=== PATIENT | male | born 1970 | race Caucasian/White ===

== ENCOUNTER 2017-11-24 13:20 | Observation (INO) | payer MEDICARE, OTHER ==
[2017-11-23 23:00] VITALS: BP 128/83
[~2017-11-24] VITALS: Ht 175.3 cm; Wt 99.6 kg
[~2017-11-24 13:20] MED LIST: ALBU8HFA PO; AMIT10TA6 PO; ASPI-611 PO; CHOL200041 PO; DULO-31 PO; FENT; LISI-604 PO; MAGN400T39 PO; MORP30TA PO; PANT40TA4 PO; PROC10TA PO; SENN-29 PO; TEST200V10 IM; TIZA4TAB11 PO; [UNRECOGNIZED DRUG - OTHER]
[2017-11-24] MEDS ORDERED: aspirin 81mg tab.chew PO ONE (13:30)
[2017-11-24 13:38] LABS: BASOPHILS % (AUTO) 0.4 % (0-1); EOSINOPHILS # (AUTO) 0.6 X10'3 (0-0.9); EOSINOPHILS % (AUTO) 6.8 % (0-6); HEMATOCRIT 53.2 % (42.0-52.0); LYMPHOCYTES # (AUTO) 1.6 X10'3 (1.1-4.8); MEAN CORPUSCULAR HEMOGLOBIN 31.2 PG (27.0-31.0); MEAN CORPUSCULAR HGB CONC 35.2 % (33.0-36.5); MEAN CORPUSCULAR VOLUME 88.8 FL (78-98); MEAN PLATELET VOLUME 8.7 FL (7.4-10.4); MONOCYTES # (AUTO) 0.6 X10'3 (0-0.9); MONOCYTES % (AUTO) 6.1 % (2-12); NEUTROPHILS # (AUTO) 6.3 X10'3 (1.8-7.7); NEUTROPHILS % (AUTO) 68.7 % (42-75); PLATELET COUNT 267 X10'3 (140-440); RED BLOOD COUNT 5.99 X10'6 (4.70-6.10); RED CELL DISTRIBUTION WIDTH 12.6 % (11.5-14.5); WHITE BLOOD COUNT 9.1 X10'3 (4.5-11.0)
[2017-11-24 13:42] LABS: HEMOGLOBIN 18.7 g/dl (14.0-17.9)
[2017-11-24 13:47] LABS: INR 1.1 INR; PARTIAL THROMBOPLASTIN TIME 30 SECONDS (22-32); PROTHROMBIN TIME 11.2 SECONDS (9.0-12.0)
[2017-11-24 13:53] LABS: ALANINE AMINOTRANSFERASE 34 U/L (12-78); ALBUMIN 4.6 G/DL (3.4-5.0); ALKALINE PHOSPHATASE 86 IU/L (46-116); ANION GAP 10 (8-16); ASPARTATE AMINO TRANSFERASE 20 U/L (10-37); BILIRUBIN,TOTAL 0.6 MG/DL (0.1-1.0); BLOOD UREA NITROGEN 15 MG/DL (7-18); BUN/CREATININE RATIO 13.2 (5.4-32.0); CALCIUM 9.4 MG/DL (8.5-10.1); CHLORIDE 102 MMOL/L (99-107); CREATININE 1.14 MG/DL (0.60-1.10); GLUCOSE 165 MG/DL (70-104); POTASSIUM 4.2 MMOL/L (3.5-5.1); SODIUM 139 MMOL/L (135-145); TOTAL CARBON DIOXIDE 26.6 MMOL/L (24-32); TOTAL PROTEIN 9.2 G/DL (6.4-8.2); eGFR 69 ML/MIN
[2017-11-24] MEDS ORDERED: proCHLORperazine 10mg tablet PO PRN (14:45)
[2017-11-24] MEDS ORDERED: morphine IR (immed. release) 30mg tablet PO PRN (14:45)
[2017-11-24] MEDS ORDERED: sennosides/docusate sodium tablet PO PRN (14:45)
[2017-11-24] MEDS ORDERED: non-formulary drug (albuterol inhaler (Pro-Air Inhaler) 2 PUFFS) PO PRN (14:45)
[2017-11-24] MEDS ORDERED: [UNRECOGNIZED DRUG - OTHER] IM SCH (14:45)
[2017-11-24] MEDS ORDERED: amitriptyline 10mg tablet PO PRN ×3 (14:45→15:27)
[2017-11-24] MEDS ORDERED: TESTOSTERONE CYPIONATE IM SCH (14:45)
[2017-11-24] MEDS ORDERED: tizanidine 4mg tablet PO PRN (14:45)
[2017-11-24] MEDS ORDERED: nitroGLYCERIN 0.4mg SUBLingual tab SL PRN ×2 (14:50)
[2017-11-24] MEDS ORDERED: normal saline 500ml IV soln 500 ML IV SCH (14:50)
[2017-11-24] MEDS ORDERED: morphine 4 MG/ML inj SYRINge IV PRN (14:50)
[2017-11-24] MEDS ORDERED: metoprolol tartrate 1mg/ml inj IV PRN (14:50)
[2017-11-24] MEDS ORDERED: atropine 0.1mg/ml 10ml syringe IV PRN (14:50)
[2017-11-24] MEDS ORDERED: DOBUTamine-DoBUTrex 500mg/D5W 250 ML IV ONE (14:50)
[2017-11-24] MEDS ORDERED: aspirin 325mg tablet PO ONE (14:50)
[2017-11-24] MEDS ORDERED: acetaminophen 325mg tablet PO PRN ×2 (14:50)
[2017-11-24] MEDS ORDERED: albuterol 2.5 MG/3 ML nebule NEB PRN (15:05)
[2017-11-24] MEDS ORDERED: ipratropium/albuterol 3ml nebule NEB PRN (15:10)
[2017-11-24 16:02] LABS: CHOL/HDL RATIO 6.2 (0.00-4.99); CHOLESTEROL 296 MG/DL (0-200); HDL CHOLESTEROL 48 MG/DL (35-60); LDL CHOLESTEROL 207 MG/DL (50-100); TRIGLYCERIDES 210 MG/DL (20-135)
[2017-11-24 20:10] VITALS: BP 148/72
[2017-11-24] MEDS: heparin, porcine 5000 units/ml vial SQ SCH (20:55)
[2017-11-24 23:00] VITALS: BP 128/83
[2017-11-25 02:05] LABS: ALANINE AMINOTRANSFERASE 29 U/L (12-78); ALBUMIN 2.4 G/DL (3.4-5.0); ALBUMIN/GLOBULIN RATIO 0.5 (1.1-1.5); ALKALINE PHOSPHATASE 70 IU/L (46-116); ANION GAP 11 (8-16); ASPARTATE AMINO TRANSFERASE 17 U/L (10-37); BILIRUBIN,TOTAL 0.5 MG/DL (0.1-1.0); BLOOD UREA NITROGEN 18 MG/DL (7-18); BUN/CREATININE RATIO 16.5 (5.4-32.0); CALCIUM 8.3 MG/DL (8.5-10.1); CHLORIDE 105 MMOL/L (99-107); CREATININE 1.09 MG/DL (0.60-1.10); GLUCOSE 101 MG/DL (70-104); PHOSPHORUS 3.8 MG/DL (2.3-4.5); POTASSIUM 3.5 MMOL/L (3.5-5.1); SODIUM 143 MMOL/L (135-145); TOTAL PROTEIN 7.4 G/DL (6.4-8.2); eGFR 73 ML/MIN
[2017-11-25 02:10] LABS: BASOPHILS # (AUTO) 0.1 X10'3 (0-0.2); BASOPHILS % (AUTO) 0.9 % (0-1); EOSINOPHILS # (AUTO) 0.6 X10'3 (0-0.9); EOSINOPHILS % (AUTO) 6.5 % (0-6); HEMATOCRIT 42.1 % (42.0-52.0); HEMOGLOBIN 14.8 g/dl (14.0-17.9); LYMPHOCYTES # (AUTO) 2.4 X10'3 (1.1-4.8); LYMPHOCYTES % (AUTO) 25.2 % (21-51); MEAN CORPUSCULAR HGB CONC 35.1 % (33.0-36.5); MONOCYTES # (AUTO) 0.9 X10'3 (0-0.9); NEUTROPHILS # (AUTO) 5.7 X10'3 (1.8-7.7); NEUTROPHILS % (AUTO) 58.4 % (42-75); PLATELET COUNT 190 X10'3 (140-440); RED BLOOD COUNT 4.62 X10'6 (4.70-6.10); RED CELL DISTRIBUTION WIDTH 12.5 % (11.5-14.5); WHITE BLOOD COUNT 9.7 X10'3 (4.5-11.0)
[2017-11-25] MEDS: morphine 4 MG/ML inj SYRINge IV PRN ×2 (02:28→07:31)
[2017-11-25 03:00] VITALS: BP 139/79
[2017-11-25 06:00] VITALS: BP 134/82
[2017-11-25] MEDS: heparin, porcine 5000 units/ml vial SQ SCH (07:31)
[2017-11-25] MEDS ORDERED: DOBUTamine-DoBUTrex 500mg/D5W 250 ML IV PRN (08:00)
[2017-11-25] MEDS ORDERED: magnesium oxide 400mg tablet PO SCH (08:00)
[2017-11-25] MEDS ORDERED: lisinopril 5mg tablet PO SCH (08:00)
[2017-11-25] MEDS ORDERED: aspirin 81mg tablet.DR PO SCH (08:00)
[2017-11-25] MEDS ORDERED: pantoprazole 40mg Tablet.DR PO SCH (08:00)
[2017-11-25] MEDS ORDERED: duloxetine 30mg CAPSULE.DR PO SCH (08:00)
[2017-11-25] MEDS ORDERED: ATOR10TA PO (09:16)
[2017-11-25 11:00] VITALS: BP 118/87
[2017-11-25] MEDS ORDERED: CARV-49 PO (11:51)
[2017-11-25] MEDS ORDERED: ATOR40TA71 PO (13:44)
[2017-11-25] MEDS ORDERED: LISI-604 PO (13:46)
== END 2017-11-25 15:00 | disposition home or self-care (01) ==
LOC: ER 13:21 → ED HOLD 14:49 → PCU 3S 21:37
PROVIDERS: ADMIT Internal Medicine; ATTEND Internal Medicine
DX: R07.89 Other chest pain (principal); E66.9 Obesity, unspecified; I42.9 Cardiomyopathy, unspecified; I11.0 Hypertensive heart disease with heart failure; I50.22 Chronic systolic (congestive) heart failure; I27.20 Pulmonary hypertension, unspecified; G47.30 Sleep apnea, unspecified; E11.9 Type 2 diabetes mellitus without complications; E78.00 Pure hypercholesterolemia, unspecified; E78.5 Hyperlipidemia, unspecified; J45.909 Unspecified asthma, uncomplicated; D75.1 Secondary polycythemia; Z83.3 Family history of diabetes mellitus
CPT/HCPCS: 36415; 71045; 80053; 80061; 83735; 84100; 84484; 85025; 85610; 85730; 87070; 93005; 94760; 96361; 96372; 96374; 96376; 99285; G0378; J1250; J1644; J2270; J7030

== ENCOUNTER 2018-01-07 07:55 | Outpatient (CLI) | payer MEDICARE, OTHER ==
[2018-01-07] VITALS (22 sets, daily range): BP systolic 105–153; BP diastolic 61–92
[~2018-01-07 07:55] MED LIST changes: +ATOR40TA71 PO; +CARV-49 PO; -PROC10TA PO; +PROC10TA10 PO
== END 2018-01-07 23:59 | disposition home or self-care (01) ==
LOC: CARD DIAG 07:55
PROVIDERS: ATTEND Internal Medicine Cardiovascular Disease
DX: R55 Syncope and collapse (principal); I10 Essential (primary) hypertension; J45.909 Unspecified asthma, uncomplicated
CPT/HCPCS: 93660